=== PATIENT | female | born 1990 | race African-American/Black ===

== ENCOUNTER 2022-05-07 11:46 | Emergency (ER) | payer BC, OTHER, SELFPAY ==
--- NOTE | 2022-05-07 12:09 | EDPHYS ---
Physician Documentation [facility] Name: Joshua Sharma Age: 32 yrs Sex: Female : 1990 Arrival Date: 05/07/2022 Time: 11:47 Bed Waiting Private MD: ED Physician Shayan Hernández HPI: 05/07 12:04 This 32 yrs old Black Female presents to ER via Ambulatory with complaints of Toothache.en 12:04 32-year-old female with no known medical history presents to ED with pain to right en upper molar radiating to the lower molar. No facial swelling. No difficulty breathing or swallowing. Historical: - Allergies: 12:00 No Known Allergies; iw - Home Meds: 12:00 None [Active]; iw - PMHx: 12:00 None; iw ROS: 12:04 Constitutional: Negative for fever, chills, and weight loss. en 12:04 Constitutional: Negative for body aches, chills, fatigue. 12:04 ENT: Positive for Teeth pain 12:04 Respiratory: Negative for shortness of breath. Exam: 12:04 Constitutional: This is a well developed, well nourished patient who is awake, alert, en and in no acute distress. 12:04 Constitutional: The patient appears Visibly uncomfortable secondary to pain but nontoxic-appearing 12:04 Eyes: Conjunctiva: normal, no exudate, no injection. 12:04 ENT: Mouth: Tooth #1 with tenderness to palpation and mild surrounding gum erythema. No visible abscess. No tenderness palpation to the lower teeth. No trismus or facial swelling.. 12:04 Cardiovascular: Rate: normal, Rhythm: regular, Pulses: Heart sounds: normal, no murmur, no rub, no gallop. 12:04 Respiratory: the patient does not display signs of respiratory distress, Respirations: normal, Breath sounds: are clear throughout, no rales, rhonchi, no stridor, no wheezing. 12:04 Neuro: Orientation: appropriate for stated age, to person, place \T\ time. Mentation: appropriate for stated age. 12:04 Psych: Behavior/mood is pleasant, cooperative. Vital Signs: 11:58 Pulse 72; Resp 16; Temp 98.2; Pulse Ox 100% on R/A; iw MDM: 12:04 Differential diagnosis: Patient with likely dental infection. No visible abscess at en this time. Data reviewed: vital signs, nurses notes, and as a result, I will discharge patient, We will discharge patient home with p.o. antibiotics. Will give first dose of pain medication and p.o. antibiotics prior to discharge.. 12:08 Patient medically screened. en Administered Medications: 12:14 Drug: Afton (HYDROcodone-acetaminophen) (7.5 mg-325 mg) 1 tabs Route: PO; iw 12:30 Follow up: Response: No adverse reaction iw 12:14 Drug: Amoxicillin 500 mg Route: PO; iw 12:30 Follow up: Response: No adverse reaction iw Disposition: 16:46 Co-signature as Attending Physician, Shayan Hernández MD. Chart complete. rn Disposition Summary: 05/07/22 12:08 Discharge Ordered Location: Home en Problem: new en Symptoms: are unchanged en Condition: Stable en Diagnosis - Dental pain en Followup: en - With: Sandip Rowland MD - When: As needed - Reason: Discharge Instructions: - Discharge Summary Sheet en - Dental Pain, [id number] en Forms: - Medication Reconciliation Form en - Work release form iw - Thank You Letter en - Antibiotic Education en - Prescription Opioid Use en Prescriptions: - amoxicillin 500 mg Oral capsule - take 1 capsule by ORAL route 3 times per day for 10 days; 30 capsule; Refills: en 0, Product Selection Permitted - Ibuprofen 800 mg Oral Tablet - take 1 tablet by ORAL route every 12 hours As needed take with food; 20 tablet; en Refills: 0, Product Selection Permitted Signatures: Susu Dickey RN RN iw Nieto, Roman, MD MD rn Newkirk, Elizabeth, PA PA en
--- NOTE | 2022-05-07 12:09 | ER ---
Nurse's Notes [facility] Name: Joshua Sharma Age: 32 yrs Sex: Female : 1990 Arrival Date: 05/07/2022 Time: 11:47 Bed Waiting Private MD: Diagnosis: Dental pain Presentation: 05/07 11:58 Chief complaint: Patient states: right sided tooth pain on top and bottom, knows she iw has a bad tooth on bottom , started hurting really bad at 4 am. Coronavirus screen: At this time, the client does not indicate any symptoms associated with coronavirus-19. Ebola Screen: Patient negative for fever greater than or equal to 101.5 degrees Fahrenheit, and additional compatible Ebola Virus Disease symptoms Patient denies exposure to infectious person. Patient denies travel to an Ebola-affected area in the 21 days before illness onset. No symptoms or risks identified at this time. Initial Sepsis Screen: Does the patient meet any 2 criteria? No. Patient's initial sepsis screen is negative. Does the patient have a suspected source of infection? No. Patient's initial sepsis screen is negative. Risk Assessment: Do you want to hurt yourself or someone else? Patient reports no desire to harm self or others. Onset of symptoms was May 07, 2022. 11:58 Method Of Arrival: Ambulatory iw 11:58 Acuity: NICKI 4 iw Historical: - Allergies: 12:00 No Known Allergies; iw - Home Meds: 12:00 None [Active]; iw - PMHx: 12:00 None; iw Vital Signs: 11:58 Pulse 72; Resp 16; Temp 98.2; Pulse Ox 100% on R/A; iw ED Course: 11:47 Patient arrived in ED. am2 11:56 Kimberley Larson PA is PHCP. en 11:56 Shayan Hernández MD is Attending Physician. en 12:00 Triage completed. iw 12:08 Sandip Rowland MD is Referral Physician. en 12:10 Susu Dickey RN is Primary Nurse. iw Administered Medications: 12:14 Drug: Reyno (HYDROcodone-acetaminophen) (7.5 mg-325 mg) 1 tabs Route: PO; iw 12:30 Follow up: Response: No adverse reaction iw 12:14 Drug: Amoxicillin 500 mg Route: PO; iw 12:30 Follow up: Response: No adverse reaction iw Outcome: 12:08 Discharge ordered by MD. chaudhry 12:25 Patient left the ED. iw Signatures: Susu Dickey RN RN iw Moreno, Amanda am2 Newkirk, Elizabeth, PA PA en
[2022-05-07] MEDS ORDERED: AMOXICILLIN TRIHYDR 250 MG CAP ONE (12:19)
[2022-05-07] MEDS ORDERED: HYDROCODONE/APAP 7.5/325 MG TAB ONE (12:20)
[2022-05-07 12:30] VITALS: TEMP 98.2; O2SAT 100
== END 2022-05-07 12:25 | disposition home or self-care (01) ==
LOC: ER 11:46
DX: K08.89 Other specified disorders of teeth and supporting structures (principal)
CPT/HCPCS: 99282

== ENCOUNTER 2024-03-10 12:55 | Emergency (ER) | payer BC ==
--- OUTSIDE RECORDS SUMMARY | 2024-03-10 12:57 | XMS REPORT | Continuity of Care Document ---
Author Name Unknown Address [address] [place] [address] [employer] Address [address] [place] [address] [address] [place] [address] Care Team Providers Care Bobbin Cleaner Hand Name Role Phone [email or web address] Attending Clinician Unavaila ble DICEH_IDA Attending Clinician Unavailab le [email or web address] Admitting Clinician Unavaila ble DICEH_IDA Admitting Clinician Unavailab le Encounters Start Date/Time End Date/Time Encounter Type Admission Type Attending Clinicians Care Facility Care Department Encounter ID Source 2023-08-29 00:00:00 2023-08-29 00:00:00 Outpatient [email or web address] [facility] [id number] [facility] 2022-05-12 04:31:00 2022-05-12 04:31:00 Outpatient RIMMA PRIETO [facility] [id number] [facility] Program
--- NOTE | 2024-03-10 13:14 | ER ---
Nurse's Notes [facility] Name: Joshua Sharma Age: 34 yrs Sex: Female : 1990 Arrival Date: 03/10/2024 Time: 12:55 Bed 5 Private MD: Diagnosis: Unspecified hemorrhoids Presentation: 03/10 13:03 Chief complaint: Patient states: EXTERNAL HEMORRHOID SINCE SUNDAY WITH MINIMAL bp BLEEDING. Coronavirus screen: At this time, the client does not indicate any symptoms associated with coronavirus-19. Ebola Screen: No symptoms or risks identified at this time. Initial Sepsis Screen: Does the patient meet any 2 criteria? No. Patient's initial sepsis screen is negative. Does the patient have a suspected source of infection? No. Patient's initial sepsis screen is negative. Risk Assessment: Do you want to hurt yourself or someone else? Patient reports no desire to harm self or others. Onset of symptoms is unknown. 13:03 Method Of Arrival: Wheelchair bp 13:03 Acuity: NICKI 3 bp Triage Assessment: 13:05 General: Appears in no apparent distress. comfortable, Behavior is calm, cooperative, bp appropriate for age. Pain: Complains of pain in buttocks. GI: Reports hemorrhoids. 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 - Infectious Disease History:: Denies. - Social history:: Smoking status: Patient denies any tobacco usage or history of. Screenin:29 [facility] ED Fall Risk Assessment (Adult) History of falling in the last 3 months, ll1 including since admission No falls in past 3 months (0 pts) Confusion or Disorientation No (0 pts) Intoxicated or Sedated No (0 pts) Impaired Gait Yes (1 pt) Mobility Assist Device Used No (0 pt) Altered Elimination No (0 pt) Score/Fall Risk Level 0 - 2 = Low Risk Maintained a safe environment, Hourly rounding (assess needs \T\ fall precautionary measures) done. Abuse screen: Denies threats or abuse. Nutritional screening: No deficits noted. Tuberculosis screening: No symptoms or risk factors identified. Assessment: 13:29 Reassessment: No changes from previously documented assessment. Patient and/or family ll1 updated on plan of care and expected duration. Pain level reassessed. Patient is alert, oriented x 3, equal unlabored respirations, skin warm/dry/pink. Vital Signs: 13:03 BP 127 / 94; Pulse 72; Resp 16; Temp 98.1; Pulse Ox 100% ; Weight 81.65 kg; Height 5 bp ft. 5 in. ; 13:29 BP 121 / 91; Pulse 71; Resp 16; Temp 98.1; Pulse Ox 100% ; Pain 9/10; ll1 13:03 Body Mass Index 29.95 (81.65 kg, 165.1 cm) bp 13:29 Pain Scale: Adult ll1 ED Course: 12:56 Patient arrived in ED. rg4 12:57 Katarzyna [facility]spina FNP [facility] 12:57 Shayan Hernández MD is Attending Physician. [facility] 13:05 Triage completed. bp 13:05 Arm band placed on. bp 13:13 Hailey Sahu MD is Referral Physician. [facility] 13:18 Anusha Ko, DEEDEE is Primary Nurse. ko1 13:29 No provider procedures requiring assistance completed. Patient did not have IV access ll1 during this emergency room visit. 13:30 Patient has correct armband on for positive identification. Bed in low position. Call ll1 light in reach. Provided Education on: n/a. Administered Medications: 13:20 Drug: Ketorolac IM 30 mg IM once Route: IM; Site: right vastus lateralis; ll1 13:30 Follow up: Response: No adverse reaction ll1 Medication: 13:30 VIS not applicable for this client. ll1 Outcome: 13:13 Discharge ordered by . [facility] 13:29 Discharged to home ambulatory, ll1 13:29 Condition: stable 13:29 Discharge instructions given to patient, Instructed on discharge instructions, follow up and referral plans. medication usage, Demonstrated understanding of instructions, follow-up care, medications, Prescriptions given X 2, 13:30 Patient left the ED. ll1 Signatures: Marci Stone 4 Regino Casiano RN RN bp Angela Guevara RN RN ll1 Katarzyna Ospina FNP [place] [address] Anusha Ko, RN RN ko1
--- NOTE | 2024-03-10 13:14 | EDPHYS ---
Physician Documentation [facility] Name: Joshua Sharma Age: 34 yrs Sex: Female : 1990 Arrival Date: 03/10/2024 Time: 12:55 Bed 5 Private MD: ED Physician Shayan Heránndez HPI: 03/10 13:03 This 34 yrs old Black Female presents to ER via Wheelchair with complaints of jh7 Hemorrhoids. 13:03 34-year-old female with no past medical history presents to the ER for an external jh7 hemorrhoid that started last Sunday. Reports discomfort with ambulating and sitting. Reports that she has been using Preparation H cream with no relief. Reports scant blood after bowel movement but no abdominal pain, diarrhea, black stool, vomiting, or any other symptoms at this time.. 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 - Infectious Disease History:: Denies. - Social history:: Smoking status: Patient denies any tobacco usage or history of. ROS: 13:03 Constitutional: Per HPI jh7 Exam: 13:03 Constitutional: This is a well developed, well nourished patient who is awake, alert, jh7 and in no acute distress. Head/Face: Normocephalic, atraumatic. Eyes: Pupils equal round and reactive to light, extra-ocular motions intact. Lids and lashes normal. Conjunctiva and sclera are non-icteric and not injected. Cornea within normal limits. Periorbital areas with no swelling, redness, or edema. Neck: Trachea midline, no thyromegaly or masses palpated, and no cervical lymphadenopathy. Supple, full range of motion without nuchal rigidity, or vertebral point tenderness. No Meningismus. Cardiovascular: Regular rate and rhythm with a normal S1 and S2. No gallops, murmurs, or rubs. Normal PMI, no JVD. No pulse deficits. Respiratory: Lungs have equal breath sounds bilaterally, clear to auscultation and percussion. No rales, rhonchi or wheezes noted. No increased work of breathing, no retractions or nasal flaring. Back: No spinal tenderness. No costovertebral tenderness. Full range of motion. Skin: Warm, dry with normal turgor. Normal color with no rashes, no lesions, and no evidence of cellulitis. MS/ Extremity: Pulses equal, no cyanosis. Neurovascular intact. Full, normal range of motion. Neuro: Awake and alert, GCS 15, oriented to person, place, time, and situation. Motor strength 5/5 in all extremities. Sensory grossly intact. Normal gait. 13:03 Abdomen/GI: Rectal exam: hemorrhoid(s), external, with pain, without bleeding, without inflammation, Vital Signs: 13:03 BP 127 / 94; Pulse 72; Resp 16; Temp 98.1; Pulse Ox 100% ; Weight 81.65 kg; Height 5 bp ft. 5 in. ; 13:29 BP 121 / 91; Pulse 71; Resp 16; Temp 98.1; Pulse Ox 100% ; Pain 9/10; ll1 13:03 Body Mass Index 29.95 (81.65 kg, 165.1 cm) bp 13:29 Pain Scale: Adult ll1 MDM: 12:57 Patient medically screened. [facility] 13:30 Differential diagnosis: External hemorrhoids, internal hemorrhoids, thrombosed jh7 hemorrhoid. Data reviewed: vital signs, nurses notes. I considered the following discharge prescriptions or medication management in the emergency department Medications were administered in the Emergency Department. See MAR. 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 ED course: Patient advised to follow-up with GI if symptoms do not improve.. Administered Medications: 13:20 Drug: Ketorolac IM 30 mg IM once Route: IM; Site: right vastus lateralis; ll1 13:30 Follow up: Response: No adverse reaction ll1 Disposition: 13:50 Co-signature as Attending Physician, Shayan Hernández MD I reviewed the patient's care rn provided by the Advanced Practice Provider and agree with the diagnosis and treatment plan. Disposition Summary: 03/10/24 13:13 Discharge Ordered Notes: Location: Home [facility] Problem: new 7 Symptoms: are unchanged jh7 Condition: Stable jh7 Diagnosis - Unspecified hemorrhoids 7 Followup: [facility] - With: Hailey Sahu MD - When: 2 - 3 days - Reason: Recheck today's complaints Discharge Instructions: - Discharge Summary Sheet 7 - High-Fiber Eating Plan jh7 - Hemorrhoids 7 - Nonsurgical Procedures for Hemorrhoids [facility] Forms: - Work release form 1 - Medication Reconciliation Form 7 - Patient Portal Instructions [facility] - Leadership Thank You Letter [facility] Prescriptions: - Anusol-HC 2.5 % Topical cream with perineal applicator - apply 1 application RECTAL route 3 to 4 times per day As needed as needed for jh7 pain; 1 Each; Refills: 0, Product Selection Permitted - Colace 100 mg Oral Tablet - take 1 tablet ORAL route every 12 hours; 14 tablet; Refills: 0, Product [facility] Selection Permitted Signatures: Shayan Hernández MD MD rn Peltier, Brian, RN RN bp Lewis, Lynsay, RN RN [facility] Katarzyna Ospina FNP [place] [id number]
[2024-03-10] MEDS ORDERED: KETOROLAC 30 MG/ML INJ ONE (13:18)
[2024-03-10 13:44] VITALS: BP 121/91; TEMP 98.1; O2SAT 100
== END 2024-03-10 13:30 | disposition home or self-care (01) ==
LOC: ER 12:55
DX: K64.9 Unspecified hemorrhoids (principal)
CPT/HCPCS: 96372; 99284